=== PATIENT | female | born 2000 | race Caucasian/White ===

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

== ENCOUNTER 2018-05-18 04:53 | Observation (INO) ==
[2018-05-18 05:17] LABS: Bilirubin,Urine Negative (Negative); Blood,Urine Negative (Negative); Clarity,Urine Cloudy (Clear); Color,Urine Yellow (Yellow); Glucose,Urine (UA) Normal (Normal); Ketones,Urine Negative (Negative); Leukocyte Esterase,Urine Negative (Negative); Nitrite,Urine Negative (Negative); Protein,Urine Negative (Neg-Trace); Urobilinogen,Urine Normal (Normal)
[2018-05-18 05:18] LABS: Bacteria,Urine Moderate per hpf (None-Few); Hyaline Casts,Urine None Seen per lpf (None-Few); Squamous Epithelial Cell,Urine Many per lpf (None-Few)
[2018-05-18 05:26] LABS: Amphetamine Screen,Urine Negative ng/mL (Cutoff=1000); Barbiturate Screen,Urine Negative ng/mL (Cutoff=200); Benzodiazepines Screen,Urine Negative ng/mL (Cutoff=200); Cannabinoid Screen,Urine Negative ng/mL (Cutoff = 50); Cocaine Screen,Urine Negative ng/mL (Cutoff= 300); Opiate Screen,Urine Negative ng/mL (Cutoff=300); Phencyclidine Screen,Urine Negative ng/mL (Cutoff=25)
--- NOTE | 2018-05-18 06:36 | OB/GYN Progress Note ---
Date of Encounter: 05/18/18 Time of Encounter: 06:35 - Assessment and Plan (1) 36 weeks gestation of Current Visit: Yes Status: Acute Continue PNC with Dr. Foote as scheduled labor precautions given Discharge home (2) Abdominal cramping affecting Current Visit: Yes Status: Acute Increase water intake Take warm shower Return for worsening symptoms (3) NST (non-stress test) reactive on surveillance Current Visit: Yes Status: Acute Subjective - Subjective Principal diagnosis: Abdominal cramping Interval history: Ms. Gaming is a 17-year-old at 36 weeks 0 days gestation who presents with c/o contractions every 2-3 minutes for "a while." She endorses good fm and denies lof and vb. Antepartum ROS: movement normal, contractions, no new complaints, no loss of fluid, no vaginal bleeding Objective - Vital Signs Vital Signs: Intake and Output 05/17/18 05/17/18 05/18/18 15:59 23:59 07:59 Other: Weight 66.2 kg Patient Weight 05/18/18 23:59 Weight 66.2 kg - Exam FHR: category 1 FHR comments: Baseline 140 Moderate variability Accelerations present 15x15 No decelerations FHR Category I Contractions initially every 10-15 and then no activity after 1 hour Auscultation: bilateral: normal Abdomen: Present: normal appearance, soft, gravid Uterus: Present: normal, firm Cervical dilation: 1 per RN Cervix effacement: 50 station: -2 - Labs Labs: Abnormal lab results Urine Clarity Cloudy (Clear) A 05/18/18 05:05 Urine Microscopic RBC 5-15 per hpf (0-3) H 05/18/18 05:05 Urine Microscopic WBC 3-5 per hpf (0-3) H 05/18/18 05:05 Ur Squamous Epith Cells Many per lpf (None-Few) H 05/18/18 05:05 Urine Bacteria Moderate per hpf (None-Few) H 05/18/18 05:05
== END 2018-05-18 06:50 | disposition home or self-care (01) ==
LOC: 1NENULAB
PROVIDERS: ADMIT Advanced Practice Midwife; ATTEND Advanced Practice Midwife

== ENCOUNTER 2018-06-09 08:00 | Inpatient (IN) ==
[2018-06-09] MEDS ORDERED: Metoclopramide 10 MG/2 ML VIAL IVP PRN (10:45)
[2018-06-09] MEDS ORDERED: Famotidine 20 MG/2 ML VIAL IVP PRN (10:45)
[2018-06-09] MEDS ORDERED: Naloxone 0.4 MG/ML INJ IVP PRN (10:45)
[2018-06-09] MEDS ORDERED: Lidocaine 1% 20 ML MDV INFILT PRN (10:45)
[2018-06-09] MEDS ORDERED: miSOPROStol 25 MCG TABLET VG PRN (10:48)
--- NOTE | 2018-06-09 11:00 | OB/GYN History & Physical ---
Date of Encounter: 06/09/18 Time of Encounter: 10:55 Assessment and Plan (1) and not yet delivered in third trimester Current visit: Yes Status: Acute (2) 39 weeks gestation of Current visit: Yes Status: Acute (3) Elective induction of labor planned Current visit: Yes Status: Acute Patient be induced with a Coto catheter and Cytotec vaginally plan is to anticipate vaginal delivery History of Present Illness HPI: Ms. Gaming is a 17 year old female 3 para 0011 at 39-1/7 weeks who presents today for induction of labor secondary term with favorable cervix. Patient was wanting to be induced as soon as she could and she was seen earlier in the week and was noted with favorable she denies any leaking of fluid good movement no vaginal bleeding no vaginal discharge. She is rubella nonimmune, she is O+, GBS negative, Varicella negative. Past Med Surg Social Fam HX - Past Medical History Source: patient, old records reviewed Medical history: asthma Additional medical history: MRSA Psychiatric history: no psych history - Past Surgical History Surgical History: no surgical history - Social History Smoking Status: Current every day smoker Packs per day: 0.5 Smokeless Tobacco Status: No Alcohol use: none Drug use: none Occupational status: unemployed Current living situation: Home - Independent Activity Level: Independent ambulation Recent Out of Country Travel Within the Last 8 Weeks: No Exposure or Possible Exposure to Illness During Travel: No - Family History Father Living Status: Hx Family Medical Disorders: Yes (brain aneurysm) Mother Living Status: Still Living Hx Family Cardiac Disorders: No Hx Family Respiratory Disorders: No Hx Family Cancer: No Hx Family GI Disorders: No Hx Family Endocrine Disorder: No Hx Family Neuromuscular Disorders: No Hx Family Neurologic Disorders: No Hx Family HEENT Disorders: No Hx Family Autoimmune Disorders: No - Additional Family History Additional family history: Family history noncontributory Obstetrical History - Pregnancies : 3 Para: 1 Term: 1 : 0 Ab's: 1 Livin Medications and Allergies Vit/Iron Fumarate/FA [ Tablet] 1 each PO DAILY 04/24/18 [ History] 3 Allergy/AdvReac Type Severity Reaction Status Date / Time No Known Allergies Allergy Verified 06/09/18 10:54 Review of System OB ROS unobtainable: due to endotracheal tube All systems PM: reviewed and no additional remarkable complaints except as stated Exam - Constitutional Constitutional: well developed, well nourished, no acute distress, average body habitus - HEENT HEENT: EOMI, PERRL, Mucus Membranes Moist - Neck Neck exam: full ROM - Lungs Respiratory exam: CTAB - Cardiovascular Cardiovascular exam: RRR - Abdomen Abdomen: Present: bowel sounds normal, gravid ( Heart tones 140s reactive occasional contractions seen,) - Vagina Vagina: Present: normal moisture - Cervix Dilation: 2 Effacement: 70 Station: -1 Results All other labs normal. - VTE Reasons for not Prescribing Prophylaxis: Treatment not Indicated - Low risk for VTE
[2018-06-09 11:49] LABS: Basophils % 0.4 %; Eosinophils # 0.1 K/mcL (0.0-0.6); Eosinophils % 1.2 %; Hematocrit 35.4 % (35.3-44.9); Hemoglobin 12.2 g/dL (11.5-15.4); Immature Granulocytes % 0.8 % (0-4); Lymphocytes # 2.3 K/mcL (0.6-4.6); Lymphocytes % 26.3 %; Mean Corpuscular HGB Conc 34.5 g/dL (31.6-35.5); Mean Corpuscular Hemoglobin 31.5 pg (28.0-33.3); Mean Corpuscular Volume 91.5 fL (83.0-100.0); Mean Platelet Volume 10.7 fL (9.4-12.4); Monocytes # 0.6 K/mcL (0.0-1.3); Monocytes % 7.5 %; Neutrophils # 5.5 K/mcL (1.6-8.9); Platelet Count 157 K/mcL (140-400); Red Blood Count 3.87 M/mcL (3.82-4.97); Red Cell Distribution Width 13.4 % (11.5-14.5); Segmented Neutrophils % 63.8 %
--- NOTE | 2018-06-09 11:57 | OB Labor Progress Note ---
Date of Encounter: 06/09/18 Time of Encounter: 11:55 Labor Progress Note - Subjective Subjective: The patient still doing well contractions still irregular - Cervix Cervix: /-1 Coto catheter placed and 40 mL balloon inflated and 25 g of Cytotec was placed vaginally - Heart Tones Heart Tones: heart tones 140s reactive - [place]: Contractions irregular - Plan Plan: Continue current care we will get epidural once Coto catheter is out then will artificially rupture and then anticipate vaginal delivery
[2018-06-09] MEDS: Ringers Solution, Lactated 1,000 ML IVC SCH ×2 (12:00→17:13)
[2018-06-09 12:07] LABS: Amphetamine Screen,Urine Negative ng/mL (Cutoff=1000); Barbiturate Screen,Urine Negative ng/mL (Cutoff=200); Benzodiazepines Screen,Urine Negative ng/mL (Cutoff=200); Cannabinoid Screen,Urine Negative ng/mL (Cutoff = 50); Cocaine Screen,Urine Negative ng/mL (Cutoff= 300); Opiate Screen,Urine Negative ng/mL (Cutoff=300); Phencyclidine Screen,Urine Negative ng/mL (Cutoff=25)
[2018-06-09] MEDS ORDERED: *HR* Nalbuphine 10 MG/ML AMPUL IV PRN (15:54)
--- NOTE | 2018-06-09 17:27 | Anesthesia Evaluation PreOp ---
Date of Encounter: 06/09/18 Time of Encounter: 17:25 - Past History Planned Operation: canelo Cardiac History: Denies any Significant Hx Pulmonary History: Smoker, Pack/yr (5), Asthma INCOME TAX RETURN PREPARER History: Denies Any Significant HX Other Medical History: GERD Anesthesia History: No Prior Anesthetic Complications : Yes Test: Positive Alcohol Use: none Drug use: none Medications and Allergies Vit/Iron Fumarate/FA [ Tablet] 1 each PO DAILY 04/24/18 [ History] Acetaminophen/Butalbital/Caffe [Fioricet] 1 tab PO 06/09/18 [History] Albuterol Sulfate [Albuterol Inhaler] 1 puff PO 06/09/18 [History] 3 Allergy/AdvReac Type Severity Reaction Status Date / Time No Known Allergies Allergy Verified 06/09/18 10:54 - Meds/Allergy Pre-op Review Medications Reviewed: Yes Allergies Reviewed: Yes Beta Blockers on Current Med List: No Anesthesia Results - Labs 06/09/18 11:25 Anesthesia Exam 100/70 7 16 fht 132 Height: 5'1" Weight: 67 NPO (# of Hours): 4 Pain Scale: 6 Pain Scale Used: Numeric (1 - 10) - HEENT Pupil (Motor): Pupils equal Mallampati: II Teeth: Normal Oral Opening: Greater than 3 - INCOME TAX RETURN PREPARER LOC: Oriented INCOME TAX RETURN PREPARER Motor: Normal RUE, Normal LUE, Normal RLE, Normal LLE, Normal Face INCOME [employer]AX RETURN PREPARER Sensory: Normal: RUE, LUE, RLE, LLE, Face - Cardiac Rhythm: Regular Murmur: None - Pulmonary Breath Sounds: bilateral Rhonchi Respiratory Effort: Symmetrical Anesthesia Assess/Plan ASA Score: 2 Modified [place] Scale for Level of Consciousness: Cooperative, oriented, and tranquil Anesthetic Plan: Regional Autologous Blood: No Monitoring Plan: Standard Monitors Recovery Plan: Other (risks discussed questions answered, consented)
[2018-06-09] MEDS ORDERED: *HR* FentaNYL (PF) 100 MCG/2 ML VIAL EP ONE (17:29)
[2018-06-09] MEDS ORDERED: *HR* Ropivacaine/PF 0.2% 20 ML VIAL EP ONE (17:29)
[2018-06-09] MEDS ORDERED: Epidural Premix (fent/bupiv) 110 ML EP SCH (17:30)
[2018-06-09] MEDS ORDERED: *HR* FentaNYL (PF) 100 MCG/2 ML VIAL ONE (17:31)
[2018-06-09] MEDS ORDERED: Lidocaine -MPF 2% 5 ML VIAL ONE (17:31)
[2018-06-09] MEDS ORDERED: *HR* Ropivacaine/PF 0.2% 20 ML VIAL ONE (17:32)
--- NOTE | 2018-06-09 17:37 | Anesthesia Procedures ---
Date of Encounter: 06/09/18 Time of Encounter: 17:56 Procedures: Anesthesia - Epidural/Spinal Patient examined: Yes OB Eval: Gestational age: 39 OB Eval: : 3 OB Eval: Hx Para: 1 OB Eval: Dilated at (cm): 6 OB Eval: Contractions: Non-stressed pattern Consent Obtained: Yes Supplemental Oxygen: None/Room Air Site Prep: Aseptic Technique, 0.5% Chlorhexidine/Alcohol Patient position: upright Local Anesthetic: Lidocaine 1% (3) Amount of Local Anesthetic used: 3 Touhy Needle Gauge: 18 Touhy Needle Depth (cm): 5 Catheter Depth at Skin (cm): 15 Test Dose (1.5% Lido + Epi): Volume given (mls): 3 Test Dose Result: Negative Loading Dose: Fentanyl (mcg): 100 Loading Dose: Other: ropivicaine 0.2% 10 cc Loading Dose Administered: Thru Touhy Needle Infusion Med: 0.125% Bupivacaine w/ 2 mcg/ml Fentanyl Infusion Rate (mls/hr): 15 (pcea 5cc q30") Catheter Secured in Place: Tegaderm Interspace Used: L2-L3 Loss of Resistance (OTTO): Yes Blood: No CSF: No Paresthesia: No Procedure: aseptic, jina well, VSS, effective Vitals + FHT's: 113/78 70 16 fht 132
--- NOTE | 2018-06-09 18:41 | OB Labor Progress Note ---
Date of Encounter: 06/09/18 Time of Encounter: 18:30 Labor Progress Note - Subjective Subjective: Patient without any complaints at this time epidural working well now very comfortable - Cervix Cervix: 7/80/0 AROM clear fluid noted - Heart Tones Heart Tones: heart tones 140s reactive - [place]: IUPC placed contractions are every 2 minutes. - Plan Plan: Continue current care plan is to anticipate vaginal delivery
[2018-06-09] MEDS ORDERED: Oxytocin 20 units/ LR 1000 mL 20 UNIT/1,000 ML BAG IVC ONE (19:35)
--- NOTE | 2018-06-09 21:01 | OB/GYN Procedure Note ---
Delivery - Delivery Date: 06/09/18 Provider: Rosalino Cardenas Intrapartum events: none Delivery induction: bhatia, misoprostol Delivery augmentation: rupture of membranes Delivery monitor: external FHT, external uterine, internal uterine Anesthesia: local, epidural Quantitated Blood Loss: 200 - Infant (s) Infant A Infant Delivery Date: 06/09/18 Delivery Time: 20:21 Presentation: vertex Position: MARIO Route of delivery: Gender: Male Viability: Viable Pounds: 8 Ounces: 4 Weight Gram: 3.735 kg at 1 minute: 9 at 5 mins: 9 Shoulder Dystocia: not encountered Specimens collected: cord blood Placenta: spontaneous Cord: nuchal cord, 3 umbilical vessels, nuchal reduced - Repair Laceration Description: Periurethral (Right side), Perineal - 2nd Degree, Labial (Right) - Complications Delivery complications: none Delivery comments: Patient is a 17-year-old 3 para 1011 at 39-1/7 weeks who presented for induction of labor secondary to with favorable cervix patient did require a Bhatia catheter with vaginal Cytotec catheter fell out she received an epidural when she was 7 cm at this point she was artificially ruptured within 2 hours patient was complete and ready to push she pushed approximately 10 minutes delivering a viable male infant in right occiput anterior presentation at 2020. There was a nuchal cord 1 loose and reduced there was no meconium the infant was bulb suctioned on the abdomen. Apgars were 9 at one and 9 at 5 minutes, infant weight was 8 lbs. 4 oz. Placenta was then delivered spontaneously with three-vessel cord, vice chairman Dr Cardenas, anesthesia epidural local, estimated blood loss 200 mL. Patient had a right periurethral and right labial laceration repaired with 3-0 Monocryl in usual fashion. She also had a second-degree perineal laceration also repaired with 3-0 Monocryl cervix vagina was visualized intact all needles lap and sponge counts were correct 3 patient will be observed 2 hours before being taken floor.
[2018-06-09] MEDS ORDERED: Oxytocin 20 units/ LR 1000 mL 20 UNIT/1,000 ML BAG IVC SCH (23:36)
[2018-06-09] MEDS ORDERED: Ibuprofen 600 MG TABLET PO PRN (23:36)
[2018-06-09] MEDS ORDERED: *HR* HYDROcodone/Acet 5/325 mg TABLET PO PRN (23:36)
[2018-06-09] MEDS ORDERED: Acetaminophen 325 MG TABLET PO PRN (23:36)
[2018-06-09] MEDS ORDERED: Measles/Mumps/Rubella Vacc 0.5 ML VIAL SQ PRN (23:36)
[2018-06-10] MEDS ORDERED: Measles/Mumps/Rubella Vacc 0.5 ML VIAL SQ PRN (07:32)
[2018-06-10] MEDS ORDERED: Acetaminophen 325 MG TABLET PO PRN (07:32)
[2018-06-10] MEDS ORDERED: *HR* HYDROcodone/Acet 5/325 mg TABLET PO PRN (07:37)
[2018-06-10] MEDS ORDERED: Oxytocin 20 units/ LR 1000 mL 20 UNIT/1,000 ML BAG IVC SCH (07:45)
[2018-06-10] MEDS: Ibuprofen 600 MG TABLET PO PRN ×2 (07:59→16:48)
[2018-06-10 08:32] LABS: Basophils % 0.3 %; Eosinophils # 0.1 K/mcL (0.0-0.6); Eosinophils % 0.5 %; Hematocrit 33.1 % (35.3-44.9); Hemoglobin 11.2 g/dL (11.5-15.4); Immature Granulocytes % 0.6 % (0-4); Lymphocytes # 2.2 K/mcL (0.6-4.6); Lymphocytes % 23.6 %; Mean Corpuscular HGB Conc 33.8 g/dL (31.6-35.5); Mean Corpuscular Hemoglobin 31.2 pg (28.0-33.3); Mean Corpuscular Volume 92.2 fL (83.0-100.0); Mean Platelet Volume 10.7 fL (9.4-12.4); Monocytes # 0.8 K/mcL (0.0-1.3); Monocytes % 8.4 %; Neutrophils # 6.2 K/mcL (1.6-8.9); Platelet Count 126 K/mcL (140-400); Red Blood Count 3.59 M/mcL (3.82-4.97); Red Cell Distribution Width 13.4 % (11.5-14.5); Segmented Neutrophils % 66.6 %
[2018-06-10] MEDS ORDERED: NON-FORMULARY MEDICATION 1 EACH EACH (Prenatal Vit/Iron Fumarate/Fa [Prenatal Tablet] 1 EA PO SCH (09:00)
[2018-06-10] MEDS ORDERED: Prenatal Vit/FA 1 EACH TABLET PO SCH ×2 (09:00)
--- NOTE | 2018-06-10 09:56 | Discharge Summary ---
Date of Encounter: 06/10/18 Time of Encounter: 09:54 - Discharge Diagnosis (1) Vaginal delivery Priority: Primary Status: Acute Comments: Pain well controlled with PO pain meds Tolerating regular diet Ambulating independently Voiding independently Passing flatus, but no BM yet Lochia light Discharge home today. - Discharge Medications Prescriptions: Ibuprofen [Motrin] 600 mg PO Q6HR PRN #30 tablet PRN Reason: Cramping Docusate [Colace] 100 mg PO BID #30 capsule Home Medications: Vit/Iron Fumarate/FA [ Tablet] 1 each PO DAILY 04/24/18 [ History] Acetaminophen/Butalbital/Caffe [Fioricet] 1 tab PO 06/09/18 [History] Albuterol Sulfate [Albuterol Inhaler] 1 puff PO 06/09/18 [History] Acetaminophen [Tylenol] 650 mg PO Q6HR PRN tablet 06/10/18 [Rx] Docusate [Colace] 100 mg PO BID #30 capsule 06/10/18 [Rx] Ibuprofen [Motrin] 600 mg PO Q6HR PRN #30 tablet 06/10/18 [Rx] Allergies/Adverse Reactions: 3 Allergy/AdvReac Type Severity Reaction Status Date / Time No Known Allergies Allergy Verified 06/09/18 10:54 Data Procedures and tests throughout hospitalization: Laboratory Tests 06/09/18 06/09/18 06/10/18 11:25 11:25 08:13 WBC 8.6 9.4 RBC 3.87 3.59 L Hgb 12.2 11.2 L Hct 35.4 33.1 L MCV 91.5 92.2 MCH 31.5 31.2 MCHC 34.5 33.8 RDW 13.4 13.4 Plt Count 157 126 L MPV 10.7 10.7 Immature Gran % 0.8 0.6 Seg Neutrophils % 63.8 66.6 Lymphocytes % 26.3 23.6 Monocytes % 7.5 8.4 Eosinophils % 1.2 0.5 Basophils % 0.4 0.3 Neutrophils # 5.5 6.2 Lymphocytes # 2.3 2.2 Monocytes # 0.6 0.8 Eosinophils # 0.1 0.1 Basophils # 0.0 0.0 Urine Opiates Screen Negative Ur Barbiturates Screen Negative Ur Phencyclidine Scrn Negative Ur Amphetamines Screen Negative U Benzodiazepines Scrn Negative Urine Cocaine Screen Negative U Marijuana (THC) Screen Negative Ur Drug Screen Interp See Below Labs on day of discharge: Labs from last 24 hours 06/10/18 06/09/18 06/09/18 08:13 11:25 11:25 WBC 9.4 8.6 RBC 3.59 L 3.87 Hgb 11.2 L 12.2 Hct 33.1 L 35.4 MCV 92.2 91.5 MCH 31.2 31.5 MCHC 33.8 34.5 RDW 13.4 13.4 Plt Count 126 L 157 MPV 10.7 10.7 Immature Gran % 0.6 0.8 Seg Neutrophils % 66.6 63.8 Lymphocytes % 23.6 26.3 Monocytes % 8.4 7.5 Eosinophils % 0.5 1.2 Basophils % 0.3 0.4 Neutrophils # 6.2 5.5 Lymphocytes # 2.2 2.3 Monocytes # 0.8 0.6 Eosinophils # 0.1 0.1 Basophils # 0.0 0.0 Urine Opiates Screen Negative Ur Barbiturates Screen Negative Ur Phencyclidine Scrn Negative Ur Amphetamines Screen Negative U Benzodiazepines Scrn Negative Urine Cocaine Screen Negative U Marijuana (THC) Screen Negative Ur Drug Screen Interp See Below Date of admission: 06/09/18 08:04 Primary care physician: Monserrat Reyes CNP Consults: 06/10/18 07:32 Consult to Accounting Support Specialist [CONS] Routine Comment: Vaginal delivery, consult needed Discharging clinician: Marian Madden Anticipated date of discharge: 06/10/18 - Patient Status Disposition: Home, Self-Care Condition: Good Functional capacity at discharge: independent ambulation Overall status at discharge: patient is progressing back to baseline - Discharge Instructions Follow Up With: Monserrat Reyes CNP [Primary Care Provider] - Rosalino Cardenas DO [Partnered Physician] - - Diet and Activity Activity: increase activity as tolerated Diet: regular diet Hospital Course Procedures: Reason for admission: induction of labor, IUP at term Delivery: Episiotomy: none Laceration: 2nd degree Other procedures: none complications: none Discharge diagnosis: IUP at term delivered baby: male Time Attestation: Total time spent providing and/or coordinating discharge services: Time Spent: Less than 30 minutes Exam - Constitutional Vitals: Temp Pulse Resp BP Pulse Ox 98.1 F 65 18 105/64 97 06/10/18 08:12 06/10/18 08:12 06/10/18 08:12 06/10/18 08:12 06/10/18 08:12 General appearance IM: cooperative, A&O X 3, pleasant, answers questions appropriately - Respiratory Respiratory exam: Present: CTAB - Cardiovascular Cardiovascular exam IM: Present: RRR, +S1, +S2 - GI/Abdominal GI/Abdominal exam IM: normal bowel sounds, no peritoneal signs - Rectal Rectal exam: deferred - Uterine Tone: Firm Uterus Position: At Umbilicus, Midline - Extremities Exam Extremities exam IM: Present: normal capillary refill, normal inspection, radial pulses palpable and symmetrical - Neurological Exam Neurological exam: alert, CN II-XII intact, normal gait, oriented X3, reflexes normal, no focal deficits, strengths equal and symetr throughout - Psychiatric Additional comments: Pt reports history of depression. S/sx of PPD reviewed and she verbalized understanding of when to seek help.
[2018-06-10 16:26] VITALS: BP 121/76
== END 2018-06-10 22:35 | disposition home or self-care (01) | DRG 560 ==
LOC: 1NENULAB 08:04 → 1NENUOBS 23:07
PROVIDERS: ADMIT Obstetrics & Gynecology; ATTEND Obstetrics & Gynecology